=== PATIENT | female | born 1990 | race Caucasian/White ===

== ENCOUNTER 2021-11-10 08:40 | Outpatient (CLI) | payer BC, OTHER ==
[~2021-11-10 08:40] MED LIST: COLACE100 MG PO; IBUPROFEN600 MG PO; LORTAB 5-325 M1 EACH PO; PRENATABS FA T1 EACH PO; ZOLOFT50 MG PO
[2021-11-10 10:17] LABS: HEMOGLOBIN 11.9 gm/dl (12.3-15.3); RED BLOOD COUNT 4.44 M/UL (4.00-5.10); WHITE BLOOD COUNT 4.6 K/UL (4.5-11.0)
== END 2021-11-10 10:25 | disposition home or self-care (01) ==
LOC: GENOP 08:40
PROVIDERS: Obstetrics & Gynecology
DX: O98.513 Other viral diseases complicating pregnancy, third trimester (principal); U07.1 COVID-19; Z3A.39 39 weeks gestation of pregnancy
CPT/HCPCS: 59025; 81001; 85025; U0002

== ENCOUNTER 2021-11-13 05:39 | Inpatient (IN) | payer BC, OTHER ==
[~2021-11-13] VITALS: Ht 160 cm; Wt 120.7 kg
[2021-11-13] MEDS ORDERED: IBUPROFEN600 MG PO (11:37)
[2021-11-13] MEDS ORDERED: HYDROCODONE-AC1 EACH PO ×2 (11:37→12:29)
[2021-11-13] MEDS ORDERED: DOCUSATE SODIU250 MG PO (11:37)
[2021-11-14 07:14] LABS: HEMOGLOBIN 11.9 gm/dl (12.3-15.3)
== END 2021-11-14 14:08 | disposition home or self-care (01) | DRG 786 ==
LOC: OB 05:39
PROVIDERS: ADMIT Obstetrics & Gynecology
PROC: 10D00Z1 Extraction of Products of Conception, Low, Open Approach (ICD-10-PCS; principal; 2021-11-13 09:11)
DX: O34.211 Maternal care for low transverse scar from previous cesarean delivery (principal); U07.1 COVID-19; O98.52 Other viral diseases complicating childbirth; E66.01 Morbid (severe) obesity due to excess calories; O99.344 Other mental disorders complicating childbirth; F41.9 Anxiety disorder, unspecified; F32.A Depression, unspecified; O99.334 Smoking (tobacco) complicating childbirth; F17.200 Nicotine dependence, unspecified, uncomplicated; O99.892 Other specified diseases and conditions complicating childbirth; E78.5 Hyperlipidemia, unspecified; O99.214 Obesity complicating childbirth; Z37.0 Single live birth; Z3A.39 39 weeks gestation of pregnancy; Z28.21 Immunization not carried out because of patient refusal; Z88.2 Allergy status to sulfonamides; Z88.8 Allergy status to other drugs, medicaments and biological substances; Z82.49 Family history of ischemic heart disease and other diseases of the circulatory system; Z80.3 Family history of malignant neoplasm of breast; Z82.5 Family history of asthma and other chronic lower respiratory diseases; Z80.2 Family history of malignant neoplasm of other respiratory and intrathoracic organs; Z81.8 Family history of other mental and behavioral disorders
CPT/HCPCS: 82800; 85014; 85018; C9113; J1580; J1885; J2274; J2370; J2405; J2590; J3010; J7120

== ENCOUNTER 2021-11-21 12:15 | Observation (INO) | payer BC, OTHER ==
[~2021-11-21 12:15] MED LIST changes: +DOCUSATE SODIU250 MG PO; +HYDROCODONE-AC1 EACH PO
[2021-11-21 13:26] LABS: HEMOGLOBIN 11.1 gm/dl (12.3-15.3); RED BLOOD COUNT 4.15 M/UL (4.00-5.10); WHITE BLOOD COUNT 5.6 K/UL (4.5-11.0)
[2021-11-21 13:53] LABS: BUN/CREATININE RATIO 19 (0-10)
== END 2021-11-23 17:09 | disposition home or self-care (01) ==
LOC: GENOP 12:15 → OB 13:30
PROVIDERS: ADMIT Obstetrics & Gynecology
DX: O14.95 Unspecified pre-eclampsia, complicating the puerperium (principal); O13.5 Gestational [pregnancy-induced] hypertension without significant proteinuria, complicating the puerperium; O99.285 Endocrine, nutritional and metabolic diseases complicating the puerperium; O99.345 Other mental disorders complicating the puerperium; E78.5 Hyperlipidemia, unspecified; F32.9 Major depressive disorder, single episode, unspecified; F41.9 Anxiety disorder, unspecified
CPT/HCPCS: ECHO; 80053; 81001; 83615; 83880; 84550; 85025; 93306; 96374; 96375; 96376; G0378; J1940; J3475; J7120

== ENCOUNTER 2021-11-24 19:30 | Emergency (ER) | payer BC, OTHER ==
[2021-11-24 21:00] LABS: HEMOGLOBIN 12.3 gm/dl (12.3-15.3); RED BLOOD COUNT 4.77 M/UL (4.00-5.10)
[2021-11-24 21:21] LABS: BUN/CREATININE RATIO 23 (0-10)
== END 2021-11-24 22:55 | disposition home or self-care (01) ==
LOC: ER1 19:30
PROVIDERS: Nurse Practitioner
DX: U07.1 COVID-19 (principal); Z88.2 Allergy status to sulfonamides; R51.9 Headache, unspecified
CPT/HCPCS: 80053; 81001; 83880; 85025; 87086; 93005; 99284

== ENCOUNTER → 2021-12-21 | Outpatient (CLI) | payer BC, OTHER | LOC: CT 10:48 | DX: R30.0 Dysuria (principal); R16.1 Splenomegaly, not elsewhere classified | CPT/HCPCS: Q9967 ==

== ENCOUNTER 2022-02-24 23:05 | Emergency (ER) | payer BC, OTHER ==
[2022-02-25 01:01] LABS: RED BLOOD COUNT 5.17 M/UL (4.00-5.10); WHITE BLOOD COUNT 5.9 K/UL (4.5-11.0)
[2022-02-25 01:25] LABS: BUN/CREATININE RATIO 18 (0-10)
== END 2022-02-25 03:10 | disposition home or self-care (01) ==
LOC: ER1 23:05
PROVIDERS: Student in an Organized Health Care Education/Training Program
DX: I10 Essential (primary) hypertension (principal); Z88.2 Allergy status to sulfonamides; Z88.1 Allergy status to other antibiotic agents
CPT/HCPCS: 71045; 80053; 82550; 82553; 84484; 85025; 99283